=== PATIENT | male | born 1980 | race Caucasian/White ===

== ENCOUNTER 2025-10-28 11:57 | Emergency (ER) | payer OTHER, BC ==
[~2025-10-28] VITALS: Ht 177.8 cm; Wt 98.0 kg
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
[2025-10-28] MEDS ORDERED: KETO10 PO (14:51)
--- NOTE | 2025-10-28 14:54 | NUR ---
co collar removed by physician at this time. tolerated well
[2025-10-28 15:04] VITALS: BP 131/95; PULSE 70; RESP 18; TEMP 97.9; O2SAT 98
== END 2025-10-28 15:18 | disposition home or self-care (01) ==
LOC: EDH 11:57
DX: S09.93XA Unspecified injury of face, initial encounter (principal); M54.50 Low back pain, unspecified; M25.512 Pain in left shoulder; V89.2XXA Person injured in unspecified motor-vehicle accident, traffic, initial encounter; Y93.89 Activity, other specified; Y92.488 Other paved roadways as the place of occurrence of the external cause; Y99.8 Other external cause status
CPT/HCPCS: 70450; 72125; 99284